=== PATIENT | female | born 1970 | race Caucasian/White ===

== ENCOUNTER 2023-10-16 07:20 | Outpatient (AMB) | payer BC, SELFPAY ==
[2023-10-16 07:36] VITALS: BP 132/80; BMI 37.1
--- NOTE | 2023-10-16 07:36 | A.OFFPC_ITS ---
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 Feeder Required: No Accompanied by: Self / Same As Patient Allergies No Known Allergies Allergy (Verified 10/16/23 07:42) Medication List - Last Reconciled 10/16/23 by Peggy Hillman MD No Known Home Meds Tobacco use date assessed: 10/16/23 Dental Screening Dental Screen Date: 10/16/23 Did you have a dental visit in the last 12 months?: Yes Did you have a dental problem in the last 6 months where you did not have access to dental care?: No Was dental information given to patient?: Patient has dentist HPI HPI Comments History of Present Illness Details This is a 53-year-old female that comes as new patient physical exam. She is obese with a BMI of 37.1 and was advised to diet and exercise to reach BMI goal less than 30. Denies any chest pain or shortness of breath. Last mammogram was over 2 years ago. Last Pap smear was 2018. Has never had a colonoscopy. [facility] Surgical History History of removal of ovarian cyst Family History (Updated 10/16/23 @ 07:49 by Peggy Hillman MD) Mother Hypertension Diabetes Father Stomach cancer Maternal Uncle Colon cancer, Onset Age: 70 Paternal Uncle Leukemia Social History Housing: House Alcohol intake: current Alcohol intake frequency: a few times a month Alcohol type: wine Patient Tobacco Use Status: Never used Tobacco e-Cigarette/Vaping Use: Never Used Second Hand Smoke Exposure: No service: No Current occupational status: employed Current occupational exposures/hazards: No Cognitive needs: No Hearing needs: No Vision needs: No Questionnaire PHQ-9 Over the last 2 weeks, how often have you been bothered by any of the following problems? 1. Little interest or pleasure in doing things: not at all 2. Feeling down, depressed, or hopeless: not at all 3. Trouble falling or staying asleep, or sleeping too much: not at all 4. Feeling tired or having little energy: not at all 5. Poor appetite or overeating: not at all 6. Feeling bad about yourself - or that you are a failure or have let yourself or your family down: not at all 7. Trouble concentrating on things, such as reading the newspaper or watching television: not at all 8. Moving or speaking so slowly that other people could have noticed. Or the opposite - being so fidgety or restless that you have been moving around a lot more than usual: not at all 9. Thoughts that you would be better off or of hurting yourself in some way: not at all Total score: 0 Depression Screening Interpretation: Negative Depression Screening Done: Yes 30240 - PHQ-9 Billing: Yes Source: Developed by Drs. Rambo Webb, Liza Dickinson, Landen Neil and colleagues, with an educational agus from [employer]. Thrive Questionnaire Date Thrive assessed: 10/16/23 I am a: Patient What is your living situation today?: I have a steady place to live Within the past 12 months, did the food you bought not last and you didn't have the money to get more?: Never true Within the past 12 months, did you worry whether your food would run out before you got money to buy more?: Never true Do you have trouble paying for medicines?: No Do you have trouble getting transportation to medical appointments?: No Do you have trouble paying your heating and electricity bill?: No Do you have trouble taking care of your child, family member or friend?: No Do you have trouble with day-to-day activities such as bathing, preparing meals, shopping, managing finances, etc.?: No Are you currently unemployed and looking for a job?: No Are you interested in more education?: No Please select the resources that you would like help with: None Currently or been in a relationship where the following occur: no concerns reported AUDIT C Alcohol Use Questionnaire (AUDIT-C) 1. How often do you have a drink containing alcohol?: Monthly or less 2. How many drinks containing alcohol do you have on a typical day when you are drinking?: 1 or 2 3. How often do you have six or more drinks on one occasion?: Never Total Score: 1 Score Reviewed/Action Taken: No MERRY-7 AMB Questionnaire MERRY-7 Date MERRY - 7 assessed: 10/16/23 Feeling nervous, anxious, or on edge: 0 = Not at all Not being able to stop or control worryin = Not at all Worrying too much about different things: 0 = Not at all Trouble relaxin = Not at all Being so restless that it is hard to sit still: 0 = Not at all Becoming easily annoyed or irritable: 0 = Not at all Feeling afraid as if something awful might happen: 0 = Not at all Total MERRY-7 score (0-4 normal; 5-9 mild; 10-14 moderate; 15-21 severe): 0 Source: Developed by Drs. Rambo Webb, Liza Dickinson, Landen Neil and colleagues, with an educational agus from [employer]. MERRY-7 Assessment Billing MERRY-7 Assessment Tool: MERRY-7 Assessment 48501 Review of Systems Const All systems reviewed & are unremarkable except as noted in HPI and below Eyes Reports no additional complaints, Denies change in vision and Denies other visual disturbances Card Denies chest pain at rest, Denies chest pain with activity, Denies edema, Denies irregular heart rhythm, Denies claudication, Denies dyspnea, Denies dyspnea on exertion, Denies orthopnea, Denies paroxysmal nocturnal dyspnea and Denies slow heart rate Resp Denies cough, Denies dyspnea and Denies dyspnea on exertion GI Denies abdominal pain, Denies change in bowel habits, Denies excessive flatus, Denies nausea and Denies vomiting Denies urinary incontinence, Denies urinary hesitancy and Denies urinary urgency Musc Denies abnormal gait, Denies atrophy, Denies deformity and Denies limited range of motion Skin/Breast Denies bleeding lesions, Denies changing lesions and Denies rash Neuro Denies abnormal gait and Denies lack of coordination Physical exam (Primary Care) Vital Signs: Last Vital Signs BP 132/80 10/16/23 07:36 BMI result Body Mass Index 37.1 Tobacco/Smoking Status: Tobacco use Status Tobacco use date assessed 10/16/23 10/16/23 07:44 Patient Tobacco Use Status Never used Tobacco 10/16/23 07:44 e-Cigarette/Vaping Use Never Used 10/16/23 07:44 PHQ-9: PHQ-9 Score PHQ-9: Total score 0 10/16/23 07:52 Depression Screening Interpretation: Negative Thrive Assessment: Date of Thrive Assessment Date Thrive assessed 10/16/23 10/16/23 07:44 Currently or been in a relationship where the following occur: no concerns reported Const Orientation/consciousness: patient oriented x3 HENMT Head: Yes normal to inspection, Yes normocephalic and Yes atraumatic Ears: external ears normal Eyes General: appearance normal, both eyes and all related structures Eyelids: Yes eyelids normal Conjunctivae: conjunctivae normal Neck Neck: Yes normal visual inspection and Yes supple Resp Effort & Inspection: normal respiratory effort Auscultation: clear to auscultation bilaterally Cardio Jugular venous distension: no JVD Rate: regular rate Rhythm: regular rhythm Heart sounds: S1 normal heart sound present and S2 normal heart sound present GI Inspection: Yes normal to inspection Palpation (GI): Soft to palpation and nontender Auscultation: normal bowel sounds Skin General skin exam: no rashes or lesions noted Neuro General: patient oriented x3 and no focal motor deficits Extrem General: Yes full ROM Psych Appearance: grossly normal Office Procedures Flu Questionnaire Does the patient have a severe egg allergy?: No Immunizations flu vacc [id number] 6mos up(PF) 60 mcg(15 mcgx4)/0.5 mL IM syringe Performing Provider: Peggy Hilmlan MD [facility] Documented (not given) by: KARIE Lund on 10/16/23 07:45 Reason Not Given: Patient Refused Assessment and Plan Assessment & Plan (1) Physical exam: Code(s): Z00.00 - Encounter for general adult medical examination without abnormal findings Plan: Repeat in a year. Orders: Orders Influenza [id number] Immunization Today Z23 - Encounter for immunization Thyroid Stimulating Hormone Today E66.9 - Obesity, unspecified, Z68.37 - Body mass index [BMI] 37.0-37.9, adult Complete Blood Count Auto Diff Today E66.9 - Obesity, unspecified, Z68.37 - Body mass index [BMI] 37.0-37.9, adult Lipid Panel Today Z00.00 - Encounter for general adult medical examination without abnormal findings Comprehensive [place]. Panel Fast Today Z00.00 - Encounter for general adult medical examination without abnormal findings MM screening mammo BI Today Z12.31 - Encounter for screening mammogram for malignant neoplasm of breast Referrals PRODUCT PROMOTER SALES PERSON Referral Z12.4 - Encounter for screening for malignant neoplasm of cervix Coding Level of Care Code Est Pt Prev Care 40-64y(13464) Diagnoses Physical exam Z00.00 Additional Codes MERRY-7 Assessment Billing - MERRY-7 Assessment Tool: MERRY-7 Assessment 87260 ([id number]) Time Spent (min) 31
== END 2023-10-16 07:58 | disposition home or self-care (01) ==
PROVIDERS: PCP Internal Medicine; Visit Provider Internal Medicine
DX: Z00.00 Encounter for general adult medical examination without abnormal findings (principal)
CPT/HCPCS: 99396

== ENCOUNTER 2023-12-02 16:09 | Outpatient (REF) | payer BC, SELFPAY ==
--- NOTE | ~2023-12-02 | MM_ITS ---
EXAMINATION: MM SCREENING DIGITAL BREAST TOMOSYNTHESIS, BILATERAL with breast implants CLINICAL INFORMATION: Screening. Asymptomatic. COMPARISON: Mammography: This study is compared to the prior examinations dating back to 2019. TECHNIQUE: Digital mammography is performed in craniocaudal and mediolateral oblique views along with computer-aided detection (CAD). Digital breast tomosynthesis is performed in implant-displaced craniocaudal and implant-displaced mediolateral oblique views along with computer-aided detection (CAD). Synthesized 2D images are generated from the tomosynthesis. FINDINGS: There are scattered areas of fibroglandular density (ACR BI-RADS breast composition Category b). There are bilateral, mammographically intact saline breast implants. There are no significant masses, abnormal calcifications, or other abnormalities. MM/MM tomosynthesis screen imp BI IMPRESSION: There are no significant changes from prior study. ASSESSMENT: BI-RADS BI-RADS 1 - Negative RECOMMENDATION: Routine annual mammography screening. 1 year F/U This patient's information was entered into a reminder system with a target due date for their next mammogram.
== END 2023-12-02 16:10 | disposition home or self-care (01) ==
LOC: HO.MAMMO 16:09
PROVIDERS: PCP Internal Medicine; Visit Provider Internal Medicine
DX: Z12.31 Encounter for screening mammogram for malignant neoplasm of breast (principal)
CPT/HCPCS: 77063; 77067

== ENCOUNTER → 2023-12-02 16:15 | Outpatient (BNV) | payer BC, SELFPAY | PROVIDERS: PCP Internal Medicine; Visit Provider Radiology Diagnostic Radiology | DX: Z12.31 Encounter for screening mammogram for malignant neoplasm of breast (principal) | CPT/HCPCS: 77063; 77067 ==

== ENCOUNTER 2024-02-10 13:04 | Outpatient (AMB) | payer BC, SELFPAY ==
--- NOTE | 2024-02-10 13:05 | A.OFFVIS_ITS ---
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 she had an abnormal Pap smear about 30 years ago, but they have all been normal since. She has grown children in their 20s she delivered them vaginally, 1 of them was premature at 34 weeks the next 1 not as preemie. 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 She does not cook so they order food out a lot and knows that that is not the healthiest either. she is experimenting with intermittent fasting. She only recently realize she has fasting blood work to do for her primary care provider and is trying to figure out how it added into her schedule. She hits the ground running with thinking about all the different things to tackle for her day early and once the day gets going even though the job is removed her time is not her own, and she deals with lots of deadlines and meetings etc. She has not sexually active she recently got her 1st mammogram she is going to be getting a colonoscopy. She does get hot flashes but she tends to be warm all the time. The last 4 years every now and then she misses a period For a month or 2 and then they come back again. [facility] Surgical History History of removal of ovarian cyst Family History Mother Hypertension Diabetes Father Stomach cancer Maternal Uncle Colon cancer, Onset Age: 70 Paternal Uncle Leukemia Social History Housing: House Alcohol intake: current Alcohol intake frequency: a few times a month Alcohol type: wine Patient Tobacco Use Status: Never used Tobacco e-Cigarette/Vaping Use: Never Used Second Hand Smoke Exposure: No service: No Current occupational status: employed Current occupational exposures/hazards: No Cognitive needs: No Hearing needs: No Vision needs: No Female Reproductive History Menstrual Age of Menarche: 14 Duration of menses: <3 days Date of last menstrual period: 01/28/24 control method: none Total pregnancies: 2 Full term: 2 Date of last pap smear: 11/04/18 (negative) History of abnormal pap smear: Yes (30 yrs ago) Date of Mammogram: 01/01/24 (negative) History of abnormal mammogram: No Physical Exam Vital Signs: Last Vital Signs BP 126/74 02/10/24 13:06 BMI result Body Mass Index 38.2 Const General: healthy appearing, comfortable, no acute distress, well developed and alert Nutritional Appearance: average body habitus Orientation/consciousness: patient oriented x3 Limitations: no limitations HEENT Head: Yes normocephalic Neck Neck: Yes normal visual inspection Chest Chest palpation & inspection: normal inspection of the chest Breast/axilla inspection: normal inspection of the breasts and normal inspection of the axillae Breast/axilla palpation: normal palpation of the breasts and normal palpation of the axillae Resp Effort & Inspection: normal respiratory effort GI Inspection: Yes normal to inspection, No Abdominal wall edema and No distended Palpation (GI): Soft to palpation and nontender Other: External exam within normal limits vagina pink moist healthy appearing discharge cervix pink smooth healthy no abnormal discharge anterior uterus slightly retroverted mobile nontender fair tone with Kegel reviewed Kegel's and she did try to practice them I am going to give her written instructions as well. General: Yes bladder normal to palpation External Female Exam: normal external appearance and normal appearance of the urethra Speculum Exam - Vagina: normal appearance of the vagina, normal palpation and normal vaginal discharge Speculum Exam - Cervix: normal appearance of the cervix, normal palpation and nontender Bimanual exam- vagina & uterus: normal bimanual exam, normal palpation, uterine size normal, bladder normal to palpation, consistency normal, normal palpation, uterine mobility normal, uterine shape normal, No Cervical tenderness present, non-tender and no cervical motion tenderness Bimanual Exam- Adnexa, other: normal adnexae, no masses, normal and No adnexal tenderness Neuro General: patient oriented x3 Assessment & Plan Assessment & Plan (1) Screening for cervical cancer: Code(s): Z12.4 - Encounter for screening for malignant neoplasm of cervix Category: Medical (2) Class 2 obesity with body mass index (BMI) of 37.0 to 37.9 in adult: Code(s): E66.9 - Obesity, unspecified; Z68.37 - Body mass index [BMI] 37.0-37.9, adult Category: Medical (3) Well woman exam with routine gynecological exam: Code(s): Z01.419 - Encounter for gynecological examination (general) (routine) without abnormal findings Category: Medical (4) Perimenopause: Code(s): N95.1 - Menopausal and female climacteric states Category: Medical Plan -----Discussed in this visit the following: healthy balanced diet, regular and consistent exercise, getting recommended health screens, doing the best she can for her particular health concerns, kegel exercises, pap smear screening and followup recommendations, mammography screening and SBE, normal changes in cycles in her life stage--- .---Discussed normal changes that happen premenapausally, perimenapausally, and postmenopausally, and ways to handle them. Discussed the normal variation, and the range of experiences that women experience. Discussed nutrition, health, need for exercise, both weight-bearing and aerobic. Also discussed the normal changes that happen with vaginal mucosal thinning and sensitivity, and simple more natural ways of handling these challenges. -----reviewed all the challenges of trying to eat healthier get more exercise turn off screens before bed and try to get best possible and take care of oneself as well as work obligations. Discussed strategies that she is trying to incorporate into her daily routine. Handout given on Kegel exercises with recommendation to try to focus tightening just the perineum and not incorporate other muscle groups as well. RTC 1 year if this Pap is normal she would need another one for 5 years. Orders: Orders Pap Smear Today Z01.419 - Encounter for gynecological examination (general) (routine) without abnormal findings Coding Level of Care Code New Pt Prev Care 40-64y(59573) Diagnoses Screening for cervical cancer Z12.4 Class 2 obesity with body mass index (BMI) of 37.0 to 37.9 in adult E66.9; Z68.37 Well woman exam with routine gynecological exam Z01.419 Perimenopause N95.1
[2024-02-10 13:06] VITALS: BP 126/74; BMI 38.2
== END 2024-02-10 13:57 | disposition home or self-care (01) ==
PROVIDERS: PCP Internal Medicine; Visit Provider Advanced Practice Midwife
DX: Z01.419 Encounter for gynecological examination (general) (routine) without abnormal findings (principal); N95.1 Menopausal and female climacteric states; E66.9 Obesity, unspecified; Z68.37 Body mass index [BMI] 37.0-37.9, adult
CPT/HCPCS: 99386

== ENCOUNTER 2024-02-10 13:04 | Outpatient (REF) | payer BC, SELFPAY ==
[2024-02-13 01:44] LABS: HPV mRNA E6/E7 rflx Not Detected (Not Detected)
== END 2024-02-10 13:05 | disposition home or self-care (01) ==
LOC: HO.LAB 13:04
PROVIDERS: PCP Internal Medicine; Visit Provider Advanced Practice Midwife
DX: Z01.419 Encounter for gynecological examination (general) (routine) without abnormal findings (principal); Z11.51 Encounter for screening for human papillomavirus (HPV)
CPT/HCPCS: 87624; 88142

== ENCOUNTER 2024-10-27 07:49 | Outpatient (AMB) | payer OTHER, SELFPAY ==
--- NOTE | 2024-10-27 08:03 | MHC.PC.OV ---
Vital Signs 10/27/24 08:04 Height 5 ft 7 in Weight 233 lb BMI 36.5 BP 132/80 Blood Pressure Location Lt brachial Position Sitting Intake Visit Reasons: Annual Exam Intake Note: Patient here for a physical exam Extender Required: No Accompanied by: Self / Same As Patient Allergies No Known Allergies Allergy (Verified 10/27/24 08:18) Medication List - Last Reconciled 10/27/24 by Peggy Hillman MD No Known Home Meds Tobacco use date assessed: 10/27/24 Dental Screening Dental Screen Date: 10/27/24 Did you have a dental visit in the last 12 months?: Yes Did you have a dental problem in the last 6 months where you did not have access to dental care?: No Was dental information given to patient?: Patient has dentist HPI HPI Comments History of Present Illness Details The patient is a 54-year-old female presenting for a routine physical exam. She is not on any medications except for occasional vitamins. She reports a BMI of 36.5, indicating obesity. She mentioned menopausal symptoms contributing to sleep disturbances and fatigue. She has not undergone a colonoscopy yet but had plans to schedule one. The patient is exceedingly conscious of her family history; her mother from glioblastoma and had diabetes and hypertension. Her father is currently receiving treatment for stomach cancer, and prostate cancer is prevalent among other male relatives. She also reports a history of having an ovarian cyst removed at age 18. The patient takes pride in maintaining her health, having had a recent mammogram and Pap smear last year, with another mammogram scheduled for next month. - Ynhkxcd-Tncemxovik-Yzdeegmrd (Tdap) vaccine update recommended. - Shingles vaccine recommended (not available today). - Routine mammogram completed last year; scheduled for next month. - Pap smear performed last year. - Blood work recommended due to family history of diabetes and hypertension. - Colonoscopy still to be scheduled. - Dietary suggestions included meal delivery services to promote better meal choices. - Encouraged regular exercise (30 minutes, five days a week). - Discussion of vaccines: update Tdap, shingles vaccine discussion. [facility] Surgical History History of removal of ovarian cyst Family History Mother Hypertension Diabetes Glioblastoma multiforme Father Stomach cancer Maternal Uncle Prostate cancer Paternal Uncle Leukemia Social History Housing: House Alcohol intake: current Alcohol intake frequency: a few times a month Alcohol type: wine Patient Tobacco Use Status: Never used Tobacco e-Cigarette/Vaping Use: Never Used Second Hand Smoke Exposure: No service: No Current occupational status: employed Current occupational exposures/hazards: No Cognitive needs: No Hearing needs: No Vision needs: No Female Reproductive History Menstrual Age of Menarche: 14 Questionnaire PHQ-9 Over the last 2 weeks, how often have you been bothered by any of the following problems? 1. Little interest or pleasure in doing things: several days 2. Feeling down, depressed, or hopeless: not at all 3. Trouble falling or staying asleep, or sleeping too much: several days 4. Feeling tired or having little energy: several days 5. Poor appetite or overeating: several days 6. Feeling bad about yourself - or that you are a failure or have let yourself or your family down: not at all 7. Trouble concentrating on things, such as reading the newspaper or watching television: not at all 8. Moving or speaking so slowly that other people could have noticed. Or the opposite - being so fidgety or restless that you have been moving around a lot more than usual: not at all 9. Thoughts that you would be better off or of hurting yourself in some way: not at all Total score: 4 Depression Screening Interpretation: Positive Depression Screening Follow-up: Existing condition and Follow-up Visit Requested Depression Screening Done: Yes 84954 - PHQ-9 Billing: Yes Source: Developed by Drs. Rambo Webb, Liza Dickinson, Landen Neil and colleagues, with an educational agus from [employer]. Thrive Questionnaire Date Thrive assessed: 10/27/24 I am a: Patient What is your living situation today?: I have a steady place to live Within the past 12 months, did the food you bought not last and you didn't have the money to get more?: Never true Within the past 12 months, did you worry whether your food would run out before you got money to buy more?: Never true Do you have trouble paying for medicines?: No Do you have trouble getting transportation to medical appointments?: No Do you have trouble paying your heating and electricity bill?: No Do you have trouble taking care of your child, family member or friend?: No Do you have trouble with day-to-day activities such as bathing, preparing meals, shopping, managing finances, etc.?: No Are you currently unemployed and looking for a job?: No Are you interested in more education?: Yes Please select the resources that you would like help with: None Currently or been in a relationship where the following occur: I choose not to answer THRIVE Score: 0 AUDIT C Alcohol Use Questionnaire (AUDIT-C) 1. How often do you have a drink containing alcohol?: 2-4 times a month 2. How many drinks containing alcohol do you have on a typical day when you are drinking?: 1 or 2 3. How often do you have six or more drinks on one occasion?: Never Total Score: 2 MERRY-7 AMB Questionnaire MERRY-7 Date MERRY - 7 assessed: 10/27/24 Feeling nervous, anxious, or on edge: 0 = Not at all Not being able to stop or control worryin = Not at all Worrying too much about different things: 0 = Not at all Trouble relaxin = Several days Being so restless that it is hard to sit still: 1 = Several days Becoming easily annoyed or irritable: 1 = Several days Feeling afraid as if something awful might happen: 0 = Not at all Total MERRY-7 score (0-4 normal; 5-9 mild; 10-14 moderate; 15-21 severe): 3 Source: Developed by Drs. Rambo Webb, Liza Dickinson, Landen Neil and colleagues, with an educational agus from [employer]. MERRY-7 Assessment Billing MERRY-7 Assessment Tool: MERRY-7 Assessment 48678 Review of Systems Const All systems reviewed & are unremarkable except as noted in HPI and below Card Denies chest pain at rest, Denies chest pain with activity, Denies edema, Denies irregular heart rhythm, Denies claudication, Denies dyspnea, Denies dyspnea on exertion, Denies orthopnea, Denies paroxysmal nocturnal dyspnea and Denies slow heart rate Resp Denies cough, Denies dyspnea and Denies dyspnea on exertion GI Denies abdominal pain, Denies change in bowel habits, Denies excessive flatus, Denies nausea and Denies vomiting Neuro Denies behavioral changes and Denies lack of coordination Psych Denies behavioral changes Physical exam (Primary Care) Vital Signs: Last Vital Signs BP 132/80 10/27/24 08:04 BMI result Body Mass Index 36.5 BMI Assessment/Plan discussion: High BMI High, discussed plan: lifestyle, weight reduction, dietary and physical activity Tobacco/Smoking Status: Tobacco use Status Tobacco use date assessed 10/27/24 10/27/24 08:09 Patient Tobacco Use Status Never used Tobacco 10/27/24 08:09 e-Cigarette/Vaping Use Never Used 10/27/24 08:09 PHQ-9: PHQ-9 Score PHQ-9: Total score 4 10/27/24 08:19 Depression Screening Interpretation: Positive Depression Screening Follow-up: Existing condition and Follow-up Visit Requested Thrive Assessment: Date of Thrive Assessment Date Thrive assessed 10/27/24 10/27/24 08:09 Currently or been in a relationship where the following occur: I choose not to answer HENFL Head: Yes normal to inspection, Yes normocephalic and Yes atraumatic Ears: external ears normal Eyes General: appearance normal, both eyes and all related structures Eyelids: Yes eyelids normal Conjunctivae: conjunctivae normal Neck Neck: Yes normal visual inspection and Yes supple Resp Effort & Inspection: normal respiratory effort Auscultation: clear to auscultation bilaterally Cardio Jugular venous distension: no JVD Rate: regular rate Rhythm: regular rhythm Heart sounds: S1 normal heart sound present and S2 normal heart sound present GI Inspection: Yes normal to inspection Palpation (GI): Soft to palpation and nontender Auscultation: normal bowel sounds Skin General skin exam: no rashes or lesions noted Neuro General: no focal motor deficits Extrem General: Yes full ROM Psych Appearance: grossly normal Office Procedures Flu Questionnaire Does the patient have a severe egg allergy?: No Immunizations Fluarix Triv [id number] (PF) 45 mcg (15 mcg x 3)/0.5 mL IM syringe Performing Provider: Peggy Hillman MD [facility] Documented (not given) by: KARIE Lund on 10/27/24 08:11 Reason Not Given: Patient Refused Boostrix Tdap 2.5 Lf unit-8 mcg-5 Lf/0.5 mL intramuscular syringe Performing Provider: Peggy Hillman MD [facility] Administered by: KARIE Lund on 10/27/24 08:40 Dose Route Admin Location Dispensed Lot Number Expiration Date NDC Inspector Shells 0.5 mL IM Left Deltoid 0.5 mL [id number] 12/22/26 [id number] [employer] VIS Given Date VIS Provided VIS Publication Date 10/27/24 Single Vaccine 21 Eligibility Eligibility Date Funding Source Not [facility] Eligible 10/27/24 Private Coding Level of Care Code Est Pt Prev Care 40-64y(76386) Diagnoses Physical exam Z00.00 Additional Codes PHQ-9 - 00236 - PHQ-9 Billing: Yes ([id number]) MERRY-7 Assessment Billing - MERRY-7 Assessment Tool: MERRY-7 Assessment 60407 ([id number]) Time Spent (min) 30 Assessment & Plan Assessment & Plan (1) Physical exam: Code(s): Z00.00 - Encounter for general adult medical examination without abnormal findings Category: Medical Plan I discussed with the patient the importance of updating vaccinations and ensuring routine screenings are complete, emphasizing the colorectal cancer screening given her age and family history. We talked over her BMI status and implications for health risks. She was advised on dietary changes and the inclusion of regular exercises as a preventative measure. Risks and benefits of weight management strategies, along with symptom relief for menopausal complaints, were covered. Similarly, the patient acknowledged the value of regular gynecological assessments, given her familial cancer incidences. Orders: Orders Lipid Panel Today Z00.00 - Encounter for general adult medical examination without abnormal findings Comprehensive [place]. Panel Fast Today Z00.00 - Encounter for general adult medical examination without abnormal findings TDaP Immunization Today Z23 - Encounter for immunization Influenza [id number] Immunization Today Z23 - Encounter for immunization Referrals Open Access Screening Colonoscopy Referral Z12.12 - Encounter for screening for malignant neoplasm of rectum Patient Instructions: - Get Tdap vaccine today. - Schedule a colonoscopy as advised. - Look into getting the shingles vaccine. - Prioritize exercise and consider dietary assistance for weight management. - Follow up on blood work in the next few months as advised. - Continue attending scheduled screenings and report any concerning symptoms.
[2024-10-27 08:04] VITALS: BP 132/80; BMI 36.5
== END 2024-10-27 08:39 | disposition home or self-care (01) ==
PROVIDERS: PCP Internal Medicine; Visit Provider Internal Medicine
DX: Z23 Encounter for immunization (principal); Z00.00 Encounter for general adult medical examination without abnormal findings

== ENCOUNTER → 2024-10-27 07:49 | Outpatient (BNVA) | payer OTHER, SELFPAY | PROVIDERS: PCP Internal Medicine; Visit Provider Internal Medicine | DX: Z00.00 Encounter for general adult medical examination without abnormal findings (principal); Z23 Encounter for immunization | CPT/HCPCS: 90471; 90715; 96127 ==

== ENCOUNTER 2025-06-03 08:01 | Outpatient (REF) | payer OTHER, SELFPAY ==
[2025-06-03 12:52] LABS: Alanine Aminotransferase 19 U/L (0-31); Albumin Level 4.5 g/dL (3.5-5.0); Alkaline Phosphatase 82 U/L (39-117); Anion Gap 14 (12-20); Aspartate Amino Transferase 23 U/L (5-31); Blood Urea Nitrogen 9 mg/dL (9-16); Calcium 9.8 mg/dL (8.4-10.2); Carbon Dioxide 27 mmol/L (22-29); Chloride 106 mmol/L (96-108); Cholesterol 193 mg/dL (<200); Estimated Glomerular Filt Rate > 60; HDL Cholesterol 59 mg/dL (>40); Potassium 4.7 mmol/L (3.3-5.1); Sodium 142 mmol/L (135-145); Total Protein 7.1 g/dL (6.5-8.0); Triglycerides 125 mg/dL (<150)
== END 2025-06-03 08:02 | disposition home or self-care (01) ==
LOC: HO.WFDLDS 08:01
PROVIDERS: Visit Provider Internal Medicine
DX: Z00.00 Encounter for general adult medical examination without abnormal findings (principal); Z13.6 Encounter for screening for cardiovascular disorders
CPT/HCPCS: 36415; 80053; 80061

== ENCOUNTER 2025-09-20 14:04 | Outpatient (AMB) | payer OTHER, SELFPAY ==
--- NOTE | 2025-09-20 14:22 | A.OFFVIS_ITS ---
Vital Signs 09/20/25 14:39 Height 5 ft 7 in Weight 238 lb BMI 37.3 BP 146/84 H Blood Pressure Location Rt brachial Position Sitting Pulse 82 Pulse Source Pulse Oximeter Pulse Oximetry (%) 98 Oxygen Delivery Method Room Air Intake Visit Reasons: Switzer screening, initial. Intake Note: New pt for initial colo consultation. FMHx of stomach cancer. CC; C/O chronic diarrhea and GI upset x multiple years. She has never had a colonoscopy and reports FMHx of UC. [employer] Required: No Accompanied by: Son Allergies No Known Allergies Allergy (Verified 10/27/24 08:18) HPI HPI Switzer screening, initial.: Details: 55 year old? female with past medical history of obesity is here today for pre colonoscopy screening.? Patient was sent to us by her PCP.? This is he her first colonoscopy screening.? Reports frequent postprandial loose stools. Patient also reports postprandial abdominal bloating. Patient is trying to take Metamucil and probiotics to help with symptoms. Family history of UC.? Denies any family history of CRC.? Denies history of difficulty with sedation or anesthesia in the past.? Negative for history of sleep apnea.? Denies any history of cardiac, renal, pulmonary, or hepatic disease.?? No history of infectious? diseases like hepatitis A, B, C, HIV or tuberculosis.? Patient is not on any anticoagulation [facility] Surgical History History of removal of ovarian cyst Family History (Updated 09/20/25 @ 14:39 by Burton Wyman [facility]) Mother Hypertension Diabetes Glioblastoma multiforme Father Stomach cancer Maternal Uncle Prostate cancer Paternal Uncle Leukemia Maternal Grandmother Ulcerative colitis Social History Housing: House Alcohol intake: current Alcohol intake frequency: a few times a month Alcohol type: wine Patient Tobacco Use Status: Never used Tobacco e-Cigarette/Vaping Use: Never Used Second Hand Smoke Exposure: No service: No Current occupational status: employed Current occupational exposures/hazards: No Cognitive needs: No Hearing needs: No Vision needs: No Female Reproductive History Menstrual Age of Menarche: 14 Review of Systems Const Denies weight gain and Denies weight loss ENT Reports no additional complaints, Denies dysphagia and Denies odynophagia Card Reports no additional complaints Resp Reports no additional complaints GI Denies abdominal pain, Denies belching, Denies melena, Denies bloating, Denies change in bowel habits, Denies dysphagia, Denies excessive flatus, Denies dyspepsia, Denies heartburn, Denies diarrhea, Denies loose stools, Denies nausea, Denies odynophagia and Denies vomiting Musc Reports no additional complaints Neuro Reports no additional complaints Psych Reports no additional complaints Endo Reports no additional complaints Physical Exam Vital Signs: Last Vital Signs Pulse 82 09/20/25 14:39 BP 146/84 H 09/20/25 14:39 Pulse Ox 98 09/20/25 14:39 Oxygen Delivery Method Room Air 09/20/25 14:39 BMI result Body Mass Index 37.3 Const General: healthy appearing, no acute distress and well developed Nutritional Appearance: well nourished and obese Orientation/consciousness: patient oriented x3 Resp Effort & Inspection: normal respiratory effort, able to speak in complete sentences, no tracheal deviation and symmetric chest movement Auscultation: clear to auscultation bilaterally Cardio Rate: regular rate GI Inspection: Yes normal to inspection, No distended and Yes obesity Palpation (GI): Soft to palpation, not firm, nontender and No hepatosplenomegaly present Auscultation: normal bowel sounds General: Yes no CVA tenderness Back/Spine/Pelvis Back: no CVA tenderness Skin General skin exam: elasticity normal, turgor normal and dry skin Neuro General: patient oriented x3 Psych Appearance: grossly normal Mental Status: mental status grossly normal Assessment & Plan Assessment & Plan (1) Postprandial diarrhea: Code(s): K52.9 - Noninfective gastroenteritis and colitis, unspecified (2) Screen for colon cancer: Code(s): Z12.11 - Encounter for screening for malignant neoplasm of colon (3) Postprandial abdominal bloating: Code(s): R14.0 - Abdominal distension (gaseous) Plan Patient denies any cardiac or respiratory symptoms.? Reports frequent stooling. Occasional postprandial abdominal bloating and loose stools. Patient is taking fiber. She was encouraged to take it during the day. Patient also reports postprandial abdominal bloating. Will check transglutaminase, vitamin-D, B 12, folate as well as lipase. Denies any issues with anesthesia in the past.? Denies any history of sleep apnea.? No history infectious diseases in the past or present.? Not on any anticoagulation therapy.? No family history of colon cancer.? Patient denies melena, hematochezia, unintentional weight loss or ribbon like stools.? Discussed at length the pre-procedure,? prep, diet & medications as well as what to expect prior, during and after the procedure.?? Stressed the importance of good bowel prep.? Recommended the use of Vaseline or Calmoseptine OTC & baby wipes with bowel movements to promote comfort.? ?Patient verbalizes understanding and agrees to plan of care.? She was given the opportunity to ask questions and all questions answered.? We will see her after the procedure.? Orders: Orders Transglutaminase IgA 09/20/25 R10.9 - Unspecified abdominal pain Vitamin D 25-OH (D2 and D3) 09/20/25 E55.9 - Vitamin D deficiency, unspecified Vitamin B12 and Folate 09/20/25 R19.7 - Diarrhea, unspecified Lipase 09/20/25 R10.9 - Unspecified abdominal pain Referrals GI Procedure Notification Z12.11 - Encounter for screening for malignant neoplasm of colon Medications: New bisacodyl (Dulcolax (bisacodyl)) take 4 tabs at noon the day before your colonoscopy 20 mg (4 x 5 mg) PO ONCE 4 tabs 0RF constipation 1 day Z12.11 - Encounter for screening for malignant neoplasm of colon polyethylene glycol 3350 (Miralax) As directed by gastroenterology department at [facility] 238 grams PO ONCE 238 grams 0RF Z12.11 - Encounter for screening for malignant neoplasm of colon Coding Level of Care Code New Pt Level 3 (97362) Diagnoses Postprandial diarrhea K52.9 Screen for colon cancer Z12.11 Postprandial abdominal bloating R14.0 Time Spent (min) 40 Comment 30 minutes spent with patient and additional 10 minutes spent reviewing her records
[2025-09-20 14:39] VITALS: BP 146/84; PULSE 82; O2SAT 98; BMI 37.3
== END 2025-09-20 15:51 | disposition home or self-care (01) ==
LOC: HO.HGI 14:05
PROVIDERS: PCP Internal Medicine; Visit Provider Nurse Practitioner Family
DX: Z01.818 Encounter for other preprocedural examination (principal); Z12.11 Encounter for screening for malignant neoplasm of colon; K52.9 Noninfective gastroenteritis and colitis, unspecified; R14.0 Abdominal distension (gaseous)
CPT/HCPCS: S0285